=== PATIENT | male | born 1935 | race Caucasian/White ===

== ENCOUNTER 2020-10-29 13:15 | Emergency (ER) | payer MEDICARE, OTHER ==
[~2020-10-29] VITALS: Ht 170.2 cm; Wt 79.5 kg
[~2020-10-29 13:15] MED LIST: GUAI600T47 PO
--- NOTE | 2020-10-29 14:41 | PHYS DOC ---
Past Medical History Past Medical History: Cancer, High Cholesterol, Hypertension, Other Additional Past Medical Histor: PROSTATE CA WITH RADIATION Past Surgical History: Tonsillectomy, Other Additional Past Surgical Histo: LT EAR, CATARACT Smoking Status: Never Smoker Alcohol Use: Rarely Drug Use: None General Adult EDM: Chief Complaint: SHINGLES HPI: HPI: 85-year-old male past medical history of prostate cancer in remission, hypertension, hyperlipidemia, GERD presents to the ED with his (patient consents to his/her/their knowledge and involvement in pts' medical care), complaints of elevated high blood pressure, systolic is normally in the 160s, today is in the 180s. Also reports he was seen in urgent care clinic on Friday for shingles outbreak on his left leg and buttocks that started on Friday. Is compliant with his acyclovir and Sumrall (which significantly alleviates the pain). States he takes verapamil and losartan for his blood pressure and has not missed these medications, no recent medication adjustments. Denies any associated chest pain, dyspnea, confusion or neurologic deficits. Review of Systems: Review of Systems: Constitutional: Denies fever or chills. [] Eyes: Denies change in visual acuity. [] HENT: Denies nasal congestion or sore throat. [] Respiratory: Denies cough or shortness of breath. [] Cardiovascular: Denies chest pain or edema. [] GI: Denies abdominal pain, nausea, vomiting, bloody stools or diarrhea. [] : Denies dysuria or hematuria Musculoskeletal: Denies back pain or joint pain. [] Integument: Denies diaphoresis or skin sloughing Neurologic: Denies headache, focal weakness or sensory changes. [] Endocrine: Denies polyuria or polydipsia. [] Lymphatic: Denies swollen glands. [] Psychiatric: Denies depression or anxiety. [] Heart Score: C/O Chest Pain: No Risk Factors: Risk Factors: DM, Current or recent (<one month) smoker, HTN, HLP, family history of CAD, obesity. Risk Scores: Score 0 - 3: 2.5% MACE over next 6 weeks - Discharge Home Score 4 - 6: 20.3% MACE over next 6 weeks - Admit for Clinical Observation Score 7 - 10: 72.7% MACE over next 6 weeks - Early Invasive Strategies Allergies: Allergies: Allergies Coded Allergies Type Severity Reaction Last Updated Verified No Known Drug Allergies 08/31/14 No Physical Exam: PE: Constitutional: Well developed, well nourished, no acute distress, non-toxic appearance, laying flat with no respiratory distress or discomfort HENT: Normocephalic, atraumatic, normal mucous membranes with no rash Eyes: EOMI, conjunctiva normal, no discharge. Neck: Normal range of motion, supple, Cardiovascular: S1/2 present, regular rhythm Lungs & Thorax: Speaking in full sentences, bilateral equal chest rise, no tachypnea or increased work of breathing Abdomen: soft, no tenderness, Skin: Warm, dry, no erythema, unilateral rash over patient's posterior buttock, anterior and posterior thigh with some vesicles/some erythematous lesions crusted over-no associated underlying cellulitis, negative Nikolsky sign Back: No midline tenderness, no CVA tenderness. [] Extremities: No tenderness, no cyanosis, no lower extremity edema Neurologic: Alert and oriented X 3, normal motor function, normal sensory function, no focal deficits noted. [] Psychologic: Affect normal, judgement normal, mood normal. [] Current Patient Data: Vital Signs: Vital Signs Date Time Temp Pulse Resp B/P (MAP) Pulse Ox O2 Delivery O2 Flow Rate FiO2 10/29/20 13:55 98.1 60 22 241/108 (152) 95 Room Air 98.1 EKG: EKG: Sinus rhythm at 59 bpm, no axis deviation, QTC 460, no T wave inversions, no ST elevations or ST depressions Radiology/Procedures: Radiology/Procedures: []IMAGING REPORT Signed PATIENT: RICHAR KEVIN V ACCOUNT: [id number] : 1935 LOCATION: ER AGE: 85 SEX: M EXAM STATUS: REG ER ORD. PHYSICIAN: SHANNAN GUPTA DO REASON: high blood pressure PROCEDURE: PORTABLE CHEST 1V XR CHEST 1V CLINICAL INDICATIONS: Reason: high blood pressure COMPARISON: September 01 2014. Findings: No acute lung infiltrate or pleural effusion or pulmonary edema or lung mass or pneumothorax is seen. The heart size, pulmonary vasculature, mediastinum and both shayy are stable. IMPRESSION: No acute radiographic abnormality is seen. Electronically signed by: Rupinder Alberts MD (10/29/2020 3:04 PM) [id number] DICTATED and SIGNED BY: RUPINDER ALBERTS MD DATE: 10/29/20 [id number] Course & Med Decision Making: Course & Med Decision Making Pertinent Labs and Imaging studies reviewed. (See chart for details) Concern for shingles outbreak, patient reports pain is well controlled. Patient with asymptomatic hypertension with no end organ damage. Will discharge home with strict ED return precautions were given for neurologic deficits, chest pain, dyspnea, confusion, fever, neck stiffness or worsening pain. Encouraged urgent outpatient follow-up with PMD in 24 to 48 hours for blood pressure reevaluation. Life-threatening processes were considered but are low suspicion at this time, given history, physical exam and ED workup. Pt was educated on all prescription medications and adverse effects. All patient's questions were answered and pt was stable at time of discharge. Life/limb-threatening differential includes but is not limited to, erythema multiforme, sanderson-brandy syndrome, toxic epidermal necrolysis, staphylococcal scalded skin syndrome, necrotizing fasciitis/myositis/cellulitis, purpura fulminans, heparin or warfarin induced skin necrosis, angioedema, anaphylaxis drug rash, disseminated intravascular coagulation, disseminated gonococcal disease, vasculitis, septicemia, petechial disorder or coagulopathy, viral exanthem, Kawasaki's disease or life-threatening burn requiring burn center management or escharotomy. I spoken with the patient and her caregivers. I explained the patient's condition, diagnoses and treatment plan based on the information available to me at this time. I have answered the patient and her caregiver's questions and addressed any concerns. The patient and her caregivers have a good understanding of patient's diagnosis, condition and treatment plan as can be expected at this point. Vital signs have been stable. Patient's condition is stable and appropriate for discharge from the emergency department. Patient will pursue further outpatient evaluation with primary care physician or other designated or consulting physician as outlined in the discharge instructions. The patient and/or caregivers are agreeable to this plan of care and follow-up instructions have been explained in detail. The patient and/or caregivers have received these instructions in written form and have expressed an understanding of the discharge instructions. The patient and/or caregivers are aware that any significant change of condition or worsening of symptoms should prompt immediate return to this or the closest emergency department or call to 911. Brittani Disclaimer: Brittani Disclaimer: This electronic medical record was generated, in whole or in part, using a voice recognition dictation system. Departure Departure Impression: Primary Impression: Shingles Additional Impression: Uncontrolled hypertension Disposition: 01 HOME / SELF CARE / HOMELESS Condition: STABLE Referrals: KORINA HUMPHRIES MD (PCP) In 24 to 48 hours for blood pressure reevaluation Patient Instructions: Hypertension, Shingles Additional Instructions: EMERGENCY DEPARTMENT GENERAL DISCHARGE INSTRUCTIONS Thank you for coming to [facility] Emergency Department (ED) today and trusting us with you care. We trust that you had a positive experience in our Emergency Department. If you wish to speak to the department management, you may call the Director at [phone]. YOUR FOLLOW UP INSTRUCTIONS ARE FOLLOWS: 1. Do you have a private Doctor? If you do not have a private doctor, please ask for a resource list of physicians or clinics that may be able to assist you with follow up care. 2. The Emergency Physicain has interpreted your x-rays. The X-Ray specialist will also review them. If there is a change in the findings, you will be notified in 48 hours when at all possible. 3. A lab test or culture has been done, your results will be reviewed and you will be notified if you need a change in treatment. ADDITIONAL INSTRUCTIONS AND INFORMATION: 1. Your care today has been supervised by a physician who is specially trained in emergency care. Many problems require more than one evaluation for a complete diagnosis and treatment. We recommend that you schedule your follow up appointment as recommended to ensure complete treatment of you illness or injury. If you are unable to obtain follow up care and continue to have a problem, or if your condition worsens, we recommend that you return to the ED. 2. We are not able to safely determine your condition over the phone nor are we able to give sound medical advice over the phone. For these safety reasons, if you call for medical advice we will ask you to come to the ED for further evaluation. 3. If you have any questions regarding these discharge instructions please call the ED at [phone]. SAFETY INFORMATION: In the interest of safety, wellness, and injury prevention; we encourage you to wear your sealbelt, if you smoke; quite smoking, and we encourage family to use a protective helmet for bicycling and other sporting events that present an increased risk for head injury. IF YOUR SYMPTOMS WORSEN OR NEW SYMPTOMS DEVELOP, OR YOU HAVE CONCERNS ABOUT YOUR CONDITION; OR IF YOUR CONDITION WORSENS WHILE YOU ARE WAITING FOR YOUR FOLLOW UP REBEKA OINTMENT; EITHER CONTACT YOUR PRIMARY CARE DOCTOR, THE PHYSICIAN WHOSE NAME AND NUMBER YOU WERE GIVEN, OR RETURN TO THE ED IMMEDIATELY. [facility]ITAL[facility]ANNAN DO October 29, 2020 14:41
--- NOTE | 2020-10-29 15:07 | RAD ---
XR CHEST 1V CLINICAL INDICATIONS: Reason: high blood pressure COMPARISON: September 01 2014. Findings: No acute lung infiltrate or pleural effusion or pulmonary edema or lung mass or pneumothora x is seen. The heart size, pulmonary vasculature, mediastinum and both shayy are stable. IMPRESSION: No acute radiographic abnormality is seen. Electronically signed by: Farhad Alberts MD (10/29/2020 3:04 PM) [id number]
[2020-10-29 15:51] LABS: BASO % 0 % (0-3); EOS % 0 % (0-3); HEMATOCRIT 42.5 % (39.0-53.0); HEMOGLOBIN 14.6 g/dL (13.0-17.5); LYMPH # 4.4 x10^3/uL (1.0-4.8); LYMPH % 47 % (24-48); MEAN CORPUSCULAR HEMOGLOBIN 30 pg (25-35); MEAN CORPUSCULAR HGB CONC 35 g/dL (31-37); MEAN CORPUSCULAR VOLUME 87 fL (79-100); MONO # 0.6 x10^3/uL (0.0-1.1); MONO % 7 % (0-9); NEUT # 4.3 x10^3/uL (1.8-7.7); NEUT % 46 % (31-73); PLATELET COUNT 201 x10^3/uL (140-400); RED BLOOD COUNT 4.87 x10^6/uL (4.30-5.70); RED CELL DISTRIBUTION WIDTH 15.4 % (11.5-14.5); WHITE BLOOD COUNT 9.4 x10^3/uL (4.0-11.0)
[2020-10-29 16:00] LABS: CALCIUM 9.4 mg/dL (8.5-10.1); CREATININE 1.1 mg/dL (0.7-1.3); GFR 63.9; POTASSIUM 3.5 mmol/L (3.5-5.1)
[2020-10-29 16:06] LABS: ALBUMIN 3.9 g/dL (3.4-5.0); TOTAL BILIRUBIN 0.6 mg/dL (0.2-1.0); TOTAL PROTEIN 7.7 g/dL (6.4-8.2)
--- NOTE | 2020-10-29 17:01 | EKG ---
[facility] [address] [place] [address] Test Date: 2020-10-29 Test Time: 15:23:56 Pat Name: RICHAR KEVIN Department: Room: Gender: M House Servant: : 1935 Requested By: SHANNAN GUPTA Order Number: [id number] Reading MD: Rolando Monzon Measurements Intervals [place] Rate: 68 P: [place]: QRS: 18 QRSD: 90 T: 51 QT: 448 QTc: 482 Interpretive Statements SINUS RHYTHM ATRIAL PREMATURE COMPLEXES PROLONGED QT Electronically Signed On 10-31-2020 15:08:25 CDT by Rolando Monzon
[2020-10-29 18:30] VITALS: BP 210/91
--- NOTE | 2020-10-29 18:55 | EKG ---
[facility] [address] [place] [address] Test Date: 2020-10-29 Test Time: 15:57:00 Pat Name: RICHAR KEVIN Department: Room: Gender: Griddle Attendant: : 1935 Requested By: SHANNAN GUPTA Order Number: [id number] Reading MD: Rolando Monzon Measurements Intervals [place] Rate: 59 P: 34 [place]: 180 QRS: 8 QRSD: 90 T: 44 QT: 460 QTc: 460 Interpretive Statements SINUS RHYTHM NORMAL ECG Electronically Signed On 10-31-2020 15:06:38 CDT by Rolando Monzon
== END 2020-10-29 18:55 | disposition home or self-care (01) ==
LOC: ER 13:15
DX: B02.9 Zoster without complications (principal); I10 Essential (primary) hypertension; E78.00 Pure hypercholesterolemia, unspecified; E78.5 Hyperlipidemia, unspecified; K21.9 Gastro-esophageal reflux disease without esophagitis
CPT/HCPCS: 36415; 71045; 80053; 84484; 85025; 93005; 99285-25